=== PATIENT | female | born 1950 | race Caucasian/White ===

== ENCOUNTER 2021-01-27 08:22 | Emergency (ER) | payer MEDICARE ==
[~2021-01-27] VITALS: Ht 167.6 cm; Wt 68.2 kg
--- NOTE | 2021-01-27 08:57 | PHYS DOC ---
Past Medical History Past Surgical History: Additional Past Surgical Histo: THYROIDECTOMY Smoking Status: Current Every Day Smoker Alcohol Use: None General Adult EDM: Chief Complaint: RECTAL BLEED HPI: HPI: 70 yo F PMH hypothyroidism (s/p thyroidectomy), diverticulosis, HTN, HLD and copd/tobacco use presents to the ed with daughter, (patient consents to his/her/their knowledge and involvement in pts' medical care), c/o rectal bleeding, 3-4 episodes of right red blood over the past 24 hours. Reports stool was loose and not formed but denies diarrhea/copious watery stool. Patient is unaware that she has any external hemorrhoids. Had a colonoscopy in January 16 at [facility]/Dr. Deshawn Thakkar, routine screening given family history of colon cancer. Colonoscopy showed benign sigmoid and rectal polyps with descending colon diverticulosis. Primary care physicians Curtis Samuel. Patient with no history of abnormal colonoscopies. Patient is not on any anticoagulants and has never had a blood transfusion before. No known history of anemia. Denies any exertional dyspnea. Review of Systems: Review of Systems: Constitutional: Denies fever or chills. [] Eyes: Denies change in visual acuity. [] HENT: Denies nasal congestion or sore throat. [] Respiratory: Denies cough or shortness of breath. [] Cardiovascular: Denies chest pain or edema. [] GI: Denies abdominal pain, nausea, vomiting, : Denies dysuria, pneumaturia or vaginal bleeding Musculoskeletal: Denies back pain or joint pain. [] Integument: Denies rash or diaphoresis Neurologic: Denies headache, focal weakness or sensory changes. [] Endocrine: Denies polyuria or polydipsia. [] Lymphatic: Denies swollen glands. [] Psychiatric: Denies depression or anxiety. [] Heart Score: C/O Chest Pain: No Risk Factors: Risk Factors: DM, Current or recent (<one month) smoker, HTN, HLP, family history of CAD, obesity. Risk Scores: Score 0 - 3: 2.5% MACE over next 6 weeks - Discharge Home Score 4 - 6: 20.3% MACE over next 6 weeks - Admit for Clinical Observation Score 7 - 10: 72.7% MACE over next 6 weeks - Early Invasive Strategies Allergies: Allergies: Allergies Coded Allergies Type Severity Reaction Last Updated Verified No Known Drug Allergies 01/27/21 No Physical Exam: PE: Constitutional: Well developed, well nourished, no acute distress, non-toxic appearance. HENT: Normocephalic, atraumatic, Eyes: EOMI, conjunctiva normal, no discharge. Neck: Normal range of motion, supple, Cardiovascular: S1/2 present, regular rhythm Lungs & Thorax: Speaking in full sentences, bilateral equal chest rise, no tachypnea or increased work of breathing Abdomen: soft, no tenderness, Skin: Warm, dry, no erythema, no rash. [] Back: No tenderness, no CVA tenderness. [] Extremities: No tenderness, no cyanosis, no lower extremity edema Neurologic: Alert and oriented X 3, normal motor function, normal sensory function, no focal deficits noted. [] Psychologic: Affect normal, judgement normal, mood normal. [] : External rectum with numerous nonthrombosed external hemorrhoids, no ovious anal fissure, ODILIA performed twice (clean rectum) with no stool in rectal vault, no melena or hematochezia, tolerated well 30-45 minutes after rectal exam pt passed bright red bloody stool in toilet basin Current Patient Data: Vital Signs: Vital Signs Date Time Temp Pulse Resp B/P (MAP) Pulse Ox O2 Delivery O2 Flow Rate FiO2 01/27/21 08:39 98.1 68 16 153/75 97 Room Air 98.1 EKG: EKG: [] Radiology/Procedures: Radiology/Procedures: IMAGING REPORT Signed PATIENT: DEXTER ZAZUETA V ACCOUNT: [id number] : 1950 LOCATION: ER AGE: 70 SEX: F EXAM STATUS: REG ER ORD. PHYSICIAN: NESSA WAGNER DO REASON: rectal bleeding PROCEDURE: CT ABD PELV W/ IV CONTRST ONLY CT ABDOMEN+PELVIS W History: rectal bleeding Comparison: None. Technique: After administration of intravenous contrast, helical CT of the abdomen and pelvis was performed from the lung bases through the ischial tuberosities. Coronal and sagittal reconstructions were obtained. 75 mL of Omnipaque 300 were used. One or more of the following dose reduction techniques were utilized: Automated exposure control (AEC), Adjustment of mA and/or kV according to patient size, Use of iterative reconstruction technique such as ASiR, CT scan done according to ALARA and image gently/image wisely Abdomen Findings: The visualized lung bases are clear. Two low-attenuation lesions in the right hepatic lobe measuring 1.2 cm and 1.5 cm. The gallbladder, pancreas, spleen, and bilateral adrenal glands are normal. Symmetric renal enhancement. There is no focal renal mass. There is no hydronephrosis. The visualized loops of small bowel are normal. Colonic diverticulosis. There is no evidence of bowel obstruction. Appendix is seen. There is no free fluid. There is no mesenteric or retroperitoneal adenopathy. The abdominal aorta is normal in caliber. Moderate aortoiliac atherosclerotic disease. Pelvis Findings: Urinary bladder is decompressed. Uterus is present. No pelvic free fluid. There is no pelvic or inguinal adenopathy. Degenerative changes spine. IMPRESSION: 1. Colonic diverticulosis. No evidence of acute diverticulitis. 2. Two small hepatic lesions are indeterminate, but statistically cysts or hemangiomas. Comparison with prior outside imaging would be helpful, or follow- up MRI to further characterize if patient has risk factors such as history of malignancy. Electronically signed by: Valerie Lew MD (01/27/2021 10:04 AM) [facility] DICTATED and SIGNED BY: VALERIE LEW MD DATE: 01/27/21 [id number] 0 Course & Med Decision Making: Course & Med Decision Making Pertinent Labs and Imaging studies reviewed. (See chart for details) Concern for hematochezia. CT imaging concerning for hepatic hemangiomas, consider nonemergent mri to assess for malignancy given family history of colon cancer. Hemoglobin is stable at 14 with no tachycardia, is hemodynamically stable. Patient had one episode hematochezia in the ED. I d/w Dr. Cook - he suspects bleeding from removal of rectal and sigmoid polyp, that Dr. Thakkar usually doesn't clip and pt can have post colonoscopy bleeding after 3 weeks after polyp removal[address] Cook does not recommend any medications or ppis, no intervention needed at this time but to offer admission for further monitoring and to repeat hemoglobin every 6-12 hours. Patient declined stating that she wanted to go home. I even offered to speak with Dr. Thakkar from [facility] regarding transfer but patient declined. Patient has supportive daughter at bedside. Will discharge home with strict ED return precautions were given for syncope, near syncope, exertional dyspnea, fatigue, weakness, brisk bleeding or worsening bleeding. Encouraged urgent outpatient follow-up with PMD and GI within 1 to 2 days. Life-threatening processes were considered but are low suspicion at this time, given history, physical exam and ED workup. Pt was educated on all prescription medications and adverse effects. All patient's questions were answered and pt was stable at time of discharge. Life/limb-threatening differential includes but is not limited to, thrombocytopenia, drug related adverse event, gastrointestinal bleeding, posterior epistaxis, hemorrhagic shock, DIC, life-threatening rash, arterial injury or trauma. I have spoken with the patient and/or caregivers. I explained the patient's condition, diagnoses and treatment plan based on the information available to me at this time. I have answered the patient and/or caregiver's questions and addressed any concerns. The patient and/or caregivers have a good understanding of patient's diagnosis, condition and treatment plan as can be expected at this point. Vital signs have been stable. Patient's condition is stable and appropriate for discharge from the emergency department. Patient will pursue further outpatient evaluation with primary care physician or other designated or consulting physician as outlined in the discharge instructions. The patient and/or caregivers are agreeable to this plan of care and follow-up instructions have been explained in detail. The patient and/or caregivers have received these instructions in written form and have expressed an understanding of the discharge instructions. The patient and/or caregivers are aware that any significant change of condition or worsening of symptoms should prompt immediate return to this or the closest emergency department or call to 911. Nicholas Disclaimer: Nicholas Disclaimer: This electronic medical record was generated, in whole or in part, using a voice recognition dictation system. Departure Departure Impression: Primary Impression: Hematochezia Disposition: HOME / SELF CARE / HOMELESS Admitting Physician: [facility] (Dr. Guthrie) Condition: STABLE Patient Instructions: Colonoscopy, Care After, Gastrointestinal Bleeding Additional Instructions: Follow-up with Dr. Thakkar in 24 to 48 hours -Return to ED immediately if you should develop any brisk bleeding, persistent bleeding hourly basis or you should become fatigued, almost passing out/passing out, feel weak or short of breath EMERGENCY DEPARTMENT GENERAL DISCHARGE INSTRUCTIONS Thank you for coming to [facility] Emergency Department (ED) today and trusting us with you care. We trust that you had a positive experience in our Emergency Department. If you wish to speak to the department management, you may call the Director at [phone]. YOUR FOLLOW UP INSTRUCTIONS ARE FOLLOWS: 1. Do you have a private Doctor? If you do not have a private doctor, please ask for a resource list of physicians or clinics that may be able to assist you with follow up care. ADDITIONAL INSTRUCTIONS AND INFORMATION: 1. Your care today has been supervised by a physician who is specially trained in emergency care. Many problems require more than one evaluation for a complete diagnosis and treatment. We recommend that you schedule your follow up appointment as recommended to ensure complete treatment of you illness or injury. If you are unable to obtain follow up care and continue to have a problem, or if your condition worsens, we recommend that you return to the ED. 2. We are not able to safely determine your condition over the phone nor are we able to give sound medical advice over the phone. For these safety reasons, if you call for medical advice we will ask you to come to the ED for further evaluation. 3. If you have any questions regarding these discharge instructions please call the ED at [phone]. SAFETY INFORMATION: In the interest of safety, wellness, and injury prevention; we encourage you to wear your sealbelt, if you smoke; quite smoking, and we encourage family to use a protective helmet for bicycling and other sporting events that present an increased risk for head injury. IF YOUR SYMPTOMS WORSEN OR NEW SYMPTOMS DEVELOP, OR YOU HAVE CONCERNS ABOUT YOUR CONDITION; OR IF YOUR CONDITION WORSENS WHILE YOU ARE WAITING FOR YOUR FOLLOW UP APPOINTMENT; EITHER CONTACT YOUR PRIMARY CARE DOCTOR, THE PHYSICIAN WHOSE NAME AND NUMBER YOU WERE GIVEN, OR RETURN TO THE ED IMMEDIATELY. NESSA MACIAS DO Jan 27, 2021 08:57
[2021-01-27 09:01] LABS: BASO # 0.1 x10^3/uL (0.0-0.2); BASO % 1 % (0-3); EOS # 0.6 x10^3/uL (0.0-0.7); EOS % 8 % (0-3); HEMATOCRIT 42.1 % (36.0-47.0); HEMOGLOBIN 14.6 g/dL (12.0-15.5); LYMPH # 1.8 x10^3/uL (1.0-4.8); LYMPH % 24 % (24-48); MEAN CORPUSCULAR HEMOGLOBIN 34 pg (25-35); MEAN CORPUSCULAR HGB CONC 35 g/dL (31-37); MEAN CORPUSCULAR VOLUME 98 fL (79-100); MONO # 0.5 x10^3/uL (0.0-1.1); MONO % 7 % (0-9); NEUT # 4.6 x10^3/uL (1.8-7.7); NEUT % 60 % (31-73); PLATELET COUNT 294 x10^3/uL (140-400); RED BLOOD COUNT 4.31 x10^6/uL (3.50-5.40); RED CELL DISTRIBUTION WIDTH 13.9 % (11.5-14.5); WHITE BLOOD COUNT 7.6 x10^3/uL (4.0-11.0)
[2021-01-27 09:06] LABS: CALCIUM 9.1 mg/dL (8.5-10.1); CREATININE 0.9 mg/dL (0.6-1.0); GFR 61.5; POTASSIUM 3.8 mmol/L (3.5-5.1)
[2021-01-27 09:12] LABS: ALBUMIN 3.8 g/dL (3.4-5.0); TOTAL BILIRUBIN 0.3 mg/dL (0.2-1.0); TOTAL PROTEIN 7.5 g/dL (6.4-8.2)
[2021-01-27] MEDS ORDERED: IOHEXOL 300 MG/ML 100ML VIAL. IV ONE (09:15)
[2021-01-27] MEDS ORDERED: CONTRAST GIVEN. MC PRN (09:15)
[2021-01-27 09:39] VITALS: BP 139/81
--- NOTE | 2021-01-27 10:06 | RAD ---
CT ABDOMEN+PELVIS W History: rectal bleeding Comparison: None. Technique: After administration of intravenous contrast, helical CT of the abdomen and pelvis was per formed from the lung bases through the ischial tuberosities. Coronal and sagittal reconstructions wer e obtained. 75 mL of Omnipaque 300 were used. One or more of the following dose reduction techniques were utilized: Automated exposure control (AEC), Adjustment of mA and/or kV according to patient size , Use of iterative reconstruction technique such as ASiR, CT scan done according to ALARA and image g ently/image wisely Abdomen Findings: The visualized lung bases are clear. Two low-attenuation lesions in the right hepatic lobe measuring 1.2 cm and 1.5 cm. The gallbladder, p ancreas, spleen, and bilateral adrenal glands are normal. Symmetric renal enhancement. There is no focal renal mass. There is no hydronephrosis. The visualized loops of small bowel are normal. Colonic diverticulosis. There is no evidence of bowel obstruction. Appendix is seen. There is no free fluid. There is no mesenteric or retroperitoneal adenopathy. The abdominal aorta is normal in caliber. Moderate aortoiliac atherosclerotic disease. Pelvis Findings: Urinary bladder is decompressed. Uterus is present. No pelvic free fluid. There is no pelvic or ingui nal adenopathy. Degenerative changes spine. IMPRESSION: 1. Colonic diverticulosis. No evidence of acute diverticulitis. 2. Two small hepatic lesions are indeterminate, but statistically cysts or hemangiomas. Comparison wi th prior outside imaging would be helpful, or follow-up MRI to further characterize if patient has ri sk factors such as history of malignancy. Electronically signed by: Jaden Lew MD (01/27/2021 10:04 AM) [facility]
[2021-01-27] MEDS ORDERED: IV NORMAL SALINE 1000ML BAG 1,000 ML IV SCH (10:30)
[2021-01-27] MEDS ORDERED: PANTOPRAZOLE SODIUM IV DRIP 80 MG in IV NORMAL SALINE 100ML 100 ML IV SCH (10:30)
[2021-01-27] MEDS ORDERED: PANTOPRAZOLE IV PUSH 40 MG VIAL. IVP ONE (10:30)
[2021-01-27 11:28] LABS: PROTHROMBIN TIME PATIENT 12.6 SEC (11.7-14.0)
== END 2021-01-27 11:25 | disposition home or self-care (01) ==
LOC: ER 08:22
DX: K92.1 Melena (principal); R19.7 Diarrhea, unspecified; I10 Essential (primary) hypertension; E03.9 Hypothyroidism, unspecified; J44.9 Chronic obstructive pulmonary disease, unspecified; F17.200 Nicotine dependence, unspecified, uncomplicated
CPT/HCPCS: 36415; 74177; 80053; 85025; 85610; 85730; 96361; 96374; 99284; C9113; J7030; Q9967

== ENCOUNTER 2021-09-26 11:07 | Emergency (ER) | payer MEDICARE ==
[~2021-09-26] VITALS: Ht 160 cm; Wt 53.7 kg
[2021-09-26] MEDS ORDERED: HYDROcodon/APAP 7.5/325MG ORAL 15 ML SOLUTION PEG ONE (12:00)
--- NOTE | 2021-09-26 12:14 | PHYS DOC ---
Past Medical History Additional Past Medical Histor: ALS Past Surgical History: Additional Past Surgical Histo: THYROIDECTOMY, G-Tube placement Smoking Status: Current Every Day Smoker Alcohol Use: None General Adult EDM: Chief Complaint: ABDOMINAL PAIN HPI: HPI: Patient is a 71 year old female who presents with abdominal pain 1 day status post PEG placement. Patient is diagnosed with ALS and is nonverbal. Patient's daughter is at bedside and aids in providing history. Daughter states that on discharge after PEG tube placement, she was instructed to provide the patient with Tylenol. Daughter was attempting to give patient liquid Tylenol by mouth, not in the PEG tube. They were not given instruction on how to administer medications through the PEG tube on discharge. Patient has abdominal pain today per daughter. Daughter states patient has been tearful all morning. They did attempt to contact the surgeon multiple times and patient's primary care provider. Patient surgeon in the OR today and was unable to return her call, so they decided to come to the ER for pain control. Home health is scheduled to come to the home today to give instruction on how to use the PEG tube. Patient nor daughter have any other complaints at this time. Review of Systems: Review of Systems: Unable to obtain secondary to patient's nonverbal status. Heart Score: C/O Chest Pain: No Current Medications: Current Medications Medications (Trade) Dose Ordered Sig/Doc Start Time Stop Time Status Last Admin Dose Admin Acetaminophen/ Hydrocodone Bitart (Lortab 7.5-325/ 15ml Oral Solution) 10 ml 1X ONCE 09/26/21 12:00 09/26/21 12:01 DC 09/26/21 11:59 10 ML Allergies: Allergies: Allergies Coded Allergies Type Severity Reaction Last Updated Verified No Known Drug Allergies 01/27/21 No Physical Exam: PE: Constitutional: Well developed, well nourished, no acute distress, non-toxic appearance. HENT: Normocephalic, atraumatic, bilateral external ears normal, nose normal. Eyes: EOMI, conjunctiva normal, no discharge. Neck: Normal range of motion, no stridor. Cardiovascular: Heart regular rate and rhythm. No apparent murmurs, rubs or gallops. Lungs & Thorax: Bilateral breath sounds clear to auscultation. Abdomen: Bowel sounds normal, soft and nondistended, PEG tube in place. Extremities: No cyanosis, no clubbing, ROM intact, no edema. Current Patient Data: Vital Signs: Vital Signs Date Time Temp Pulse Resp B/P (MAP) Pulse Ox O2 Delivery O2 Flow Rate FiO2 09/26/21 11:10 97.4 84 18 96/55 (69) 96 Room Air 97.4 Course & Med Decision Making: Course & Med Decision Making Pertinent Labs and Imaging studies reviewed. (See chart for details) Patient is a 71-year-old female with past medical history that includes ALS that presents with abdominal pain status post PEG tube placement. Patient was given liquid Lortab here in the department through PEG tube with significant improvement in pain. Patient's daughter at bedside was educated on how to administer medications through the PEG tube. Patient's daughter states that she has spoken to the office staff for the patient's surgeon, who will be contacting them later today. Patient's daughter feels comfortable going home, now that she knows how to use the PEG tube. Return precautions were provided. They were strongly encouraged to continue communication with the surgeons office regarding her pain. Patient and daughter understand and are agreeable to discharge plan. Dragon Disclaimer: Dragrosemarie Disclaimer: This electronic medical record was generated, in whole or in part, using a voice recognition dictation system. Departure Departure Impression: Primary Impression: S/P percutaneous endoscopic gastrostomy (PEG) tube placement Additional Impression: Abdominal pain, acute Disposition: 01 HOME / SELF CARE / HOMELESS Condition: IMPROVED Referrals: UNKNOWN PCP NAME (PCP) Additional Instructions: You are prescribed liquid versions of Lortab as well as Tylenol. The liquid Lortab has acetaminophen in it, so be cautious when administering these medications. Maximum dose should be 3000 mg/day of Tylenol. EMERGENCY DEPARTMENT GENERAL DISCHARGE INSTRUCTIONS Thank you for coming to [facility] Emergency Department (ED) today and trusting us with you care. We trust that you had a positive experience in our Emergency Department. If you wish to speak to the department management, you may call the director at . YOUR FOLLOW UP INSTRUCTIONS ARE FOLLOWS: 1. Follow up with your primary care doctor. If you do not have a primary doctor, please ask for a resource list of physicians or clinics that may be able to assist you with follow up care. 2. The emergency provider has interpreted your imaging studies, if any were ordered. The radiology web communications specialist also reviewed them. If there is a change in the findings, you will be notified in 48 hours when at all possible. 3. If a lab test or culture has been done, your results will be reviewed and you will be notified if you need a change in treatment. 4. Follow instructions verbalized to you and refer to the printouts if needed. ADDITIONAL INSTRUCTIONS AND INFORMATION: 1. Your care today has been supervised by a physician who is specially trained in emergency care. Many problems require more than one evaluation for a complete diagnosis and treatment. We recommend that you schedule your follow up appointment as recommended to ensure complete treatment of you illness or injury. If you are unable to obtain follow up care and continue to have a problem, or if your condition worsens, we recommend that you return to the ED. 2. We are not able to safely determine your condition over the phone nor are we able to give sound medical advice over the phone. For these safety reasons, if you call for medical advice we will ask you to come to the ED for further evaluation. 3. If you have any questions regarding these discharge instructions please call the ED at . SAFETY INFORMATION: In the interest of safety, wellness, and injury prevention; we encourage you to wear your seat belt, if you smoke; quite smoking, and we encourage family to use a protective helmet for bicycling and other sporting events that present an increased risk for head injury. IF YOUR SYMPTOMS WORSEN OR NEW SYMPTOMS DEVELOP, OR YOU HAVE CONCERNS ABOUT YOUR CONDITION; OR IF YOUR CONDITION WORSENS WHILE YOU ARE WAITING FOR YOUR FOLLOW UP APPOINTMENT; EITHER CONTACT YOUR PRIMARY CARE DOCTOR, THE PHYSICIAN WHOSE NAME AND NUMBER YOU WERE GIVEN, OR RETURN TO THE ED IMMEDIATELY. Scripts Hydrocodone Bit/Acetaminophen (HYDROCODONE-APAP 5-217/10 SOLN) 10 Ml Solution 10 ML PO PRN Q6HRS PRN for PAIN, #100 ML 0 Refills Do not take at the same time as acetaminophen (brand-name Tylenol). Prov: YAIMA PITT 09/26/21 Acetaminophen (ACETAMINOPHEN ORAL LIQUID ) 650 Mg/20.3 Ml Solution 650 MG PO PRN Q6HRS PRN for MILD PAIN / TEMP, #300 ML Prov: YAIMA PITT 09/26/21 YAIMA PITT Sep 26, 2021 12:13
[2021-09-26] MEDS ORDERED: ACET650S PO (12:30)
[2021-09-26] MEDS ORDERED: HYDR10SO4 PO (12:33)
[2021-09-26 12:45] VITALS: BP 89/52
== END 2021-09-26 12:45 | disposition home or self-care (01) ==
LOC: ER 11:07
DX: R10.9 Unspecified abdominal pain (principal); Z93.1 Gastrostomy status; F17.200 Nicotine dependence, unspecified, uncomplicated
CPT/HCPCS: 43762; 99283; 99284